=== PATIENT | female | born 1990 | race Caucasian/White ===

== ENCOUNTER 2023-02-07 12:26 | Day surgery (SDC) | payer BC ==
[2023-02-07] MEDS: Lactated Ringers 1,000 ML IV SCH (12:43)
[2023-02-07] MEDS ORDERED: Propofol 200 MG/20 ML SDV ONE ×2 (13:24→14:13)
[2023-02-07] MEDS ORDERED: Midazolam 1 MG/ML 2 ML SDV ONE (13:25)
[2023-02-07] MEDS ORDERED: fentaNYL 100 MCG/2 ML SDV ONE (13:25)
[2023-02-07] MEDS ORDERED: Lidocaine 4% 5 ML Amp ONE (13:44)
[2023-03-21] MEDS ORDERED: Lactated Ringers 1,000 ML IV SCH (07:00)
== END 2023-02-07 15:25 | disposition home or self-care (01) ==
LOC: VM.SDS 12:26
PROVIDERS: ATTEND Family Medicine
DX: K31.7 Polyp of stomach and duodenum (principal); K29.50 Unspecified chronic gastritis without bleeding; G43.909 Migraine, unspecified, not intractable, without status migrainosus; G47.00 Insomnia, unspecified; N63.10 Unspecified lump in the right breast, unspecified quadrant; Z79.899 Other long term (current) drug therapy
CPT/HCPCS: 00731; J2250; J2704; J3010; J7120